=== PATIENT | male | born 1955 | race Caucasian/White ===

== ENCOUNTER 2018-11-06 11:12 | Emergency (ER) | payer MEDICARE ==
[~2018-11-06 11:12] MED LIST: AMIODARONE 50 MG/ML 3 ML VIAL IV ONE; DEXTROSE 5% IN WATER 250 ML BAG IV ONE; DEXTROSE 5% IN WATER 50 ML BAG ONE; EPINEPHrine 10 ML SYRINGE (0.1 MG/ML) ONE; SODIUM BICARB 8.4% 50 ML SYR (1 MEQ/ML) ONE
--- NOTE | 2018-11-06 12:04 | ED ---
General Adult HPI - General Stated complaint: Cardiac Arrest Time Seen by Provider: 11/06/18 11:12 Source: RN notes reviewed - History of Present Illness Initial comments: This is an 62-year-old male who was a witnessed arrest in the store. An EEG was applied to him and shocked him twice prior to the paramedics arriving. Patient was in V. fib according to the paramedics for the whole trip into the emergency department they shocked him a couple more times a gave him epinephrine and upon arrival he was intubated but only had breath sounds in the right side. No other history at this time was available we continued following ACLS protocol at this time. Patient's brother did arrive at the very end of the code and he did indicate to us that the patient was an alcoholic. No other history is available at this time. Review of Systems ROS Statement: Those systems with pertinent positive or pertinent negative responses have been documented in the HPI. ROS Other: All systems not noted in ROS Statement are negative. General Exam - General Exam Comments Initial Comments: GENERAL: Patient is well-developed and well-nourished. Patient is unresponsive and has no spontaneous movement. ENT: Patient is a light purplish color from the neck up. EYES: Pupils are 3 mm and fixed and nonreactive PULMONARY: Patient is intubated and has breath sounds that are heard well on the right but not on the left. ET tube will be moved back. CARDIOVASCULAR: No heart sounds are heard no pulses are able to be obtained ABDOMEN: No gross abnormalities noted SKIN: Skin is clear with no lesions or rashes and otherwise unremarkable. NEUROLOGIC: Unresponsive MUSCULOSKELETAL: No movement of any extremities. LYMPHATICS: No significant lymphadenopathy is noted PSYCHIATRIC: Unable to assess Medical Decision Making - Medical Decision Making Patient remained in what appeared to be a coarse V. fib throughout the duration in the emergency department. We gave multiple doses of epinephrine we also shocked multiple times as well as giving the patient amiodarone bicarb. Patient never regained any pulses no spontaneous respirations and at 1128 we pronounced the patient . I spoke with family and 2 different occasions I spoke with Kathie ma the medical social consultant as well. Critical Care Time Critical Care Time: Yes Total Critical Care Time: 30 Disposition Clinical Impression: Cardiopulmonary arrest Disposition: Referrals: None,Stated [Primary Care Provider] - 1-2 days Time of Disposition: 12:23 Preliminary Cause of : Cardiopulmonary arrest
== END 2018-11-06 15:00 | disposition expired ==
LOC: EC 11:12 → MERGE 11:12 → EC 15:00
DX: I46.9 Cardiac arrest, cause unspecified (principal)
CPT/HCPCS: 99291